=== PATIENT | male | born 1975 | race Caucasian/White ===

== ENCOUNTER 2016-09-25 16:35 | Inpatient (IN) | payer MEDICARE ==
[~2016-09-25] VITALS: Ht 167.6 cm; Wt 64.7 kg
[~2016-09-25 16:35] MED LIST: /ESCI20TA OR; TRAZ100T OR; ZYPR20TA OR
[2016-09-25] MEDS ORDERED: LORazepam 1 MG TAB PO STA (17:48)
[2016-09-25 17:58] LABS: ALBUMIN 4.3 GM/DL (3.2-5.2); ALBUMIN/GLOBULIN RATIO 1.34 (1.00-1.93); ALKALINE PHOSPHATASE 85 U/L (45-117); ALT/SGPT 22 U/L (12-78); ANION GAP 8 MEQ/L (8-16); AST/SGOT 11 U/L (15-37); BILIRUBIN,DIRECT 0.1 MG/DL (0.0-0.2); BILIRUBIN,TOTAL 0.5 MG/DL (0.2-1.0); BLOOD UREA NITROGEN 10 MG/DL (7-18); CALCIUM LEVEL 9.5 MG/DL (8.5-10.1); CARBON DIOXIDE LEVEL 28 MEQ/L (21-32); CHLORIDE LEVEL 102 MEQ/L (98-107); GLOMERULAR FILTRATION RATE > 60.0 (>60); GLUCOSE, FASTING 107 MG/DL (70-105); POTASSIUM SERUM 4.9 MEQ/L (3.5-5.1); SODIUM LEVEL 138 MEQ/L (136-145); TOTAL PROTEIN 7.5 GM/DL (6.4-8.2)
[2016-09-25] MEDS ORDERED: LAMI1TAB7 PO (18:13)
[2016-09-25 18:17] LABS: MEAN CORPUSCULAR HEMOGLOBIN 29.8 pg (27.0-33.0); MEAN CORPUSCULAR HGB CONC 33.7 g/dl (32.0-36.5); MEAN CORPUSCULAR VOLUME 88.5 fl (80.0-96.0); RED CELL DISTRIBUTION WIDTH 12.3 % (11.5-14.5); WHITE BLOOD COUNT 6.8 K/mm3 (4.0-10.0)
[2016-09-25 19:38] LABS: METHADONE URINE NEGATIVE (NEGATIVE)
[2016-09-25 22:23] VITALS: BP 135/75
[2016-09-25] MEDS ORDERED: MOM 30ML SUSPENSION UDC PO PRN (23:45)
[2016-09-25] MEDS ORDERED: MAALOX 30 ML SUSP *UDC PO PRN (23:45)
[2016-09-25] MEDS ORDERED: ACETAMINOPHEN TAB 650MG DOSE (2X325MG) PO PRN (23:45)
[2016-09-26] MEDS: OLANZapine 5 MG TAB PO PRN (00:09)
--- NOTE | 2016-09-26 10:25 | HPEPDOC ---
Medical History and Physical Date of Admission Sep 25, 2016 at 19:22 History and Physical PCP: none ATTENDING: Dr. Pepito Leyva HPI: 40yoM admitted to [facility] for bipolar disorder, being medically examined today. No acute medical complaints today. Patient states he takes Lamictal for his bipolar disorder. He follows with [facility]. Denies any fevers, chills, weakness , fatigue, GONZALES, CP, SOB, cough, palpitations, abdominal pain, N/V/D or changes in bowel or bladder habits. 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 ROS: As noted in HPI, otherwise 11pt ROS of systems reviewed and remarkable only for poor dentition. Teeth are in very poor condition. He states he has not been having any dental pain or dental infections recently. He has not had a dental provider. Usually rinses his mouth after eating and is careful about what foods he eats. PE: GEN: 40 yo M, appears stated age. Well-nourished, well developed. No acute distress. Alert and oriented x 3. Pleasant, interactive. HEENT: Normocephalic, atraumatic. Pupils are equal, round, and reactive to light. Extraocular movements are intact. No nystagmus appreciated. Sclera are nonicteric. Conjunctiva without injection. Nose midline. Nasal turbinates without bogginess. EACs both patent BL. TMs both visualized and walter with good cone of light, no bulging or erythema. No facial asymmetry. Moist mucous membranes. Dentition poor. Pharynx pink and moist, no cobblestoning. Neck supple , trachea midline. No lymphadenopathy or thyromegaly appreciated. CHEST: Regular rate and rhythm, +S1, +S2 LUNGS: Clear to auscultation bilaterally. No wheezes, rales, or rhonchi. Breathing appears symmetric and easy. Patient is speaking in full sentences. No accessory muscle use. ABD: Round, soft, non-tender, non-distended. +Bowel sounds throughout. No rebound or guarding. No costovertebral angle tenderness. EXT: Pulses 2+ bilaterally dorsalis pedis and radial. No lower extremity edema appreciated. SKIN: [place], dry, warm. Capillary refill <2sec. No rashes. NEURO: Alert and oriented x 3. Cranial nerves III-XII are intact. No focal deficits appreciated. EKG: Pending. A&P: 40yoM admitted to [facility] for bipolar disorder 1. Psych. Plan per Psychiatry.Obtain baseline EKG to assure the safety of psychiatric medications as they can prolong the QT interval. 2. Substance use. Per psychiatry. 3. Arrange follow-up with dental provider. 4. Follow up. No Primary Care Provider. Will attempt to establish PCP on discharge. 5. Staff member Kavon present throughout examination. Vital Signs Vital Signs Label Value Date Time Patient Temperature 98.3 degrees F 09/25/162222 Temperature Source Core 09/25/163 Pulse 87 09/25/16 2223 Pulse 87 09/25/16 2223 Respiratory Rate 22 bpm 09/25/16 2223 Blood Pressure Assessment 135/75 (95) 09/25/163 Bedside Pulse Oximetry 96 % 09/25/16 2223 Item Value Date Time Oxygen Delivery Method Room Air 09/25/16 2223 Laboratory Data Labs 24H Laboratory Tests 2 09/25/16 17:14: Acetaminophen Level < 2.0L, Aspartate Amino Transf (AST/SGOT) 11L, Alanine Aminotransferase (ALT/SGPT) 22, Alkaline Phosphatase 85, Total Bilirubin 0.5, Direct Bilirubin 0.1, Albumin 4.3, Albumin/Globulin Ratio 1.34, Anion Gap 8, Calcium Level 9.5, Ethyl Alcohol Level < 0.003, Glomerular Filtration Rate > 60.0, Salicylates Level 4.0L, Thyroid Stimulating Hormone (TSH) 0.958, Total Protein 7.5 09/25/16 18:39: Urine Amphetamines Screen NEGATIVE, Urine Benzodiazepines Screen NEGATIVE, Urine Opiates Screen NEGATIVE, Urine Barbiturates Screen NEGATIVE, Urine Cannabinoids Screen POSITIVEH, Urine Cocaine Metabolite Screen NEGATIVE, Urine Methadone Screen NEGATIVE, Urine Phencyclidine Screen NEGATIVE CBC/BMP Laboratory Tests 09/25/16 17:14 Red Blood Count 5.23, Mean Corpuscular Volume 88.5, Mean Corpuscular Hemoglobin 29.8, Mean Corpuscular Hemoglobin Concent 33.7, Red Cell Distribution Width 12.3 Home Medications Scheduled Lamotrigine (Lamictal) 100 Mg Tab 100 MG PO BID PT STATES ONLY TAKES WHEN HE REMEMBERS Allergies Coded Allergies: No Known Allergies (Verified Allergy, Unknown, 05/30/11) Ching Potter Sep 26, 2016 10:25
[2016-09-26 12:00] VITALS: BP 132/88
[2016-09-26] MEDS: hydrOXYzine 50 MG TAB PO SCH ×2 (12:24→23:32)
--- NOTE | 2016-09-26 13:39 | MHHPE ---
DATE OF ADMISSION: 09/25/2016 DATE OF SERVICE: 09/26/2016 IDENTIFYING DATA: Pierre Handy is a 40-year-old -Togolese man who was seen in the emergency room after he presented with complaints of worsening anxiety, severe depression, and increasing suicidal thoughts. CHIEF COMPLAINT: "I've been very depressed, anxious, and not feeling like myself." HISTORY OF PRESENT ILLNESS: Mr. Handy reports that he has a history of bipolar 1 disorder, but has not been taking his medication in the past 4-5 months due to his inability to pay for the prescription, as his insurance had lapsed. He progressively began to experience worsening of his symptoms, mainly depression. He was becoming very depressed in the past week with feelings of hopelessness, guilt, shame, lack of motivation and energy. He also began to experience severe anxiety, causing him to increasingly use marijuana IN self medication. About two days prior to his admission, he began to have frightening thoughts of suicide; thus, he undertook coming to the emergency room, where he requested voluntary inpatient hospitalization. He recalls having had a similar experience in 1998, which resulted in his first [facility] inpatient admission due to attempted hanging. PAST PSYCHIATRIC HISTORY: The patient reports having had his first psychiatric encounter when he was 14 years old. He states that he had at the time attempted suicide by taking an overdose of pills, and he was taken to an emergency room and subsequently referred to an outpatient psychiatrists. He reports having been prescribed medications at the time, but was noncompliant. Subsequently, around 1996 when he moved to [place] from [place], he was twice hospitalized at [facility] for mood-related disturbances. Details are unclear, but he recalls being started on Depakote at that time. His last inpatient psychiatric admission was at [facility], from 05/30/2011 to 06/05/2011, after he presented with suicidal ideation. His discharge diagnosis at that time was bipolar 1 disorder, social phobia, and generalized anxiety disorder, and the medications included Zyprexa 20 mg at bedtime, Lexapro 20 mg daily, and trazodone 100 mg at bedtime. He reports unclear unpleasant experiences with these medications. He also said he previously had been prescribed Lamictal. SUBSTANCE ABUSE HISTORY: The patient admits to significant use of marijuana, up to a gram or more a day, as self-prescribed treatment of his anxiety symptoms. He denies the use of other substances including alcohol and cigarettes. MEDICAL HISTORY: No active medical issues reported. SURGICAL HISTORY: Notable for appendectomy and a skin graft to his left ring finger secondary to congenital defects. ALLERGIES: There are no known allergies reported. SOCIAL HISTORY: He says that he was born in [place] where he completed a twelfth grade education. He relocated to [place] in 1996 and has been living here since then. He had one and a half years of service but was ejected due to having problems adjusting in the . 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 He was but in 2006 and has no children. No reported arrest history. He currently lives with his girlfriend. FAMILY HISTORY: He reports that he has three brothers, one of whom has Asperger's disease. Biological mother is . Father and step mom live in [place] as is the rest of his family members. He maintains only minimal contact with family members. The patient reports a notable family history of mental illness including father being diagnosed with anxiety and depression. Most family members with manic depressive disorder. No family history of suicide. REVIEW OF SYSTEMS: No pertinent findings. MENTAL STATUS EXAMINATION: The patient is a Togol[place] man who looks his stated age. He is of average height and build, and is fairly groomed. He is calm, cooperative, and presents with no unusual mannerisms. His speech is fluent. Thought process is coherent and logical. No delusional contents, and he denies active suicidal thoughts, plans or intent, as well as homicidal ideation. However, he expresses concern related to frequent intrusions into his thinking about "getting rid of my problems by committing suicide". He denies hallucination and does not appear to be responding to internal stimuli. He describes his mood as very depressed and affect is constricted. He is alert and well oriented to time , place and person. No evidence of memory impairment. Insight is good and judgment is currently not impaired. DIAGNOSIS: 1. Bipolar 1 disorder, current episode depressed. 2. Unspecified Anxiety Disorder 3. Cannabis use disorder, moderate. PROBLEM LIST: 1. Depressed mood. 2. Anxiety. 3. Risk for suicide. TREATMENT PLAN. 1. Admission on voluntary status. 2. Provision of safe and therapeutic environment to promote recovery and positive treatment response. 3. Treatment will be initiated with quetiapine for management of bipolar depression. Medications will be reviewed and adjusted ongoing, as may be clinically indicated. 4. Therapeutic programming, including group and activities, to be provided as adjuvant to medication management. Discharge planning will commence immediately. Estimated length of stay is five to seven days. MTDD
[2016-09-26 18:00] VITALS: BP 140/77
[2016-09-26 21:00] VITALS: BP 138/84
[2016-09-26] MEDS ORDERED: QUEtiapine FUMARATE 50 MG TAB PO ONE (21:00)
[2016-09-27 06:17] VITALS: BP 132/67
[2016-09-27 06:21] VITALS: BP 132/67
[2016-09-27] MEDS: hydrOXYzine 50 MG TAB PO SCH ×3 (07:57→23:11)
--- NOTE | 2016-09-27 16:49 | IPN ---
DATE: 09/27/2016 SUBJECTIVE: "I'm doing alright, better than I was the other day, but I'm still feeling depressed and my anxiety is going up." The patient is a 40-year-old -Indian man who was seen in the emergency room after he presented with complaints of worsening anxiety, severe depression, and increasing suicidal thoughts. He is diagnosed with bipolar 1 disorder, current episode depressed. Today is his third day of inpatient hospital admission and he is currently being prescribed quetiapine, with dose was started at 50 mg orally at bedtime and still being adjusted - today at 100 mg orally at bedtime. In addition, he is prescribed hydroxyzine 50 mg orally twice daily for management of anxiety. He is reported to be compliant with his treatment, and no adverse events reported. OBSERVATION: The patient is noted to be cooperative, is alert and adequately oriented. His vital signs are stable. He is noted to be quite teary and appearing very anxious as he discusses his progress and says that he wants the "voices and the anxiety in my head to go away". He is tolerating current medications and no adverse event evident. He denies active thoughts, plan, or intent of suicide or homicide. ASSESSMENT: The patient has continued to experience significant anxiety and mood symptomatology. However, he does not appear to be at imminent risk for suicide. PLAN: Quetiapine dose will continue to be adjusted to better manage mood symptoms. Hydroxyzine increased to 50 mg orally 3 times daily for anxiety. MTDD
[2016-09-27 18:00] VITALS: BP 147/70
[2016-09-27 20:32] VITALS: BP 144/84
[2016-09-27] MEDS ORDERED: QUEtiapine FUMARATE 100 MG TAB PO ONE (21:00)
[2016-09-27] MEDS: OLANZapine 5 MG TAB PO PRN (23:11)
[2016-09-28 06:26] VITALS: BP 102/65
[2016-09-28] MEDS: hydrOXYzine 50 MG TAB PO SCH ×3 (07:52→20:50)
[2016-09-28 18:00] VITALS: BP 145/88
--- NOTE | 2016-09-28 20:31 | IPN ---
DATE: 09/28/2016 SUBJECTIVE: "I am really depressed, maybe I am thinking that I should get better right away." The patient is seen and his treatment is reviewed. He currently is prescribed quetiapine at a dose of 100 mg. His hydroxyzine was increased the previous day to 50 mg orally three times daily. He continues to report mood symptoms. He states that his thoughts are racing and that he currently is depressed. He has been compliant with his medications and no reported side effects. OBSERVATION: He is groomed, alert, cooperative, and appropriately dressed. No abnormal involuntary movements or EPS noted. His speech is fluent. Thought process is coherent. Mood is depressed. No gross psychotic features evident. He denies active thoughts, plan or intent of suicide. ASSESSMENT: The patient seems to be responding but not robustly to treatment. Inpatient hospitalization continues to be required in order to appropriately adjust his medications. PLAN: Quetiapine will be increased to 200 mg extended release type orally daily at bedtime. Hydroxyzine will be continued at the current dose of 50 mg orally three times daily. Ongoing assessment and therapeutic programming. [facility]
[2016-09-28] MEDS: OLANZapine 5 MG TAB PO PRN (20:50)
[2016-09-28] MEDS ORDERED: QUEtiapine FUMARATE **XR** 200MG TABLET PO ONE (21:00)
[2016-09-29 06:41] VITALS: BP 145/64
[2016-09-29] MEDS: hydrOXYzine 50 MG TAB PO SCH ×3 (08:13→21:18)
--- NOTE | 2016-09-29 12:42 | IPN ---
DATE OF SERVICE: 09/29/2016 SUBJECTIVE: Today is the fifth day of inpatient admission for this 40-year-old man with bipolar depression admitted due to worsening depression, anxiety and suicidal ideation. He currently is prescribed quetiapine XR with dose still being adjusted up to a maximum of 30 mg at bedtime. Hydroxyzine 50 mg tablets is prescribed three times daily for management of anxiety. He reports today that the medication is working, I slept well last night and my mood is getting better. He has been compliant with treatment and presents with no new problems. OBSERVATION: His vital signs are stable. He alert and cooperative. Mood is noted to be less depressed and is observed to be less anxious. No overt psychotic feature noted, and he denies suicidal and homicidal ideation. No medication related adverse event. ASSESSMENT: The patient has continued to tolerated and respond positive with the treatment. PLAN: The same treatment will be continued and patient reassessed in 24 hours. He will be scheduled for discharge if he maintains treatment stability. [place]
[2016-09-29 18:00] VITALS: BP 121/77
[2016-09-29] MEDS ORDERED: QUEtiapine 300 MG XR TABLET(SEROQUEL XR) PO SCH (21:00)
[2016-09-29] MEDS: OLANZapine 5 MG TAB PO PRN (21:18)
[2016-09-30 06:13] VITALS: BP 114/66
[2016-09-30] MEDS: hydrOXYzine 50 MG TAB PO SCH (08:38)
[2016-09-30] MEDS ORDERED: QUET30XR PO (10:56)
[2016-09-30] MEDS ORDERED: HYDRO50TAB PO (10:56)
--- NOTE | 2016-09-30 11:00 | DS.PDOC ---
[facility] Discharge Summary Discharge Summary DATE OF ADMISSION: Sep 25, 2016 at 19:22 Date of discharge: 09/30/2016 DISCHARGE DIAGNOSES: 1. Unspecified anxiety. 2. Unspecified bipolar disorder. 3. chronic insomnia. REASON FOR ADMISSION: The patient was admitted due to presenting with suicidal ideation without a plan. He had been reportedly suffering from severe anxiety and insomnia for several days prior and was admitted for acute stabilization and safety planning. CONSULTANTS INVOLVED: None TREATMENT AND PROGRESS ON THE UNIT : Legal status on admission: 9.39 Medication Management: The patient was originally taken off of his home Lamictal and Zyprexa. He was started on Seroquel at 150 mg extended release formula. He appeared to do somewhat well on in tolerated without side effects. He was subsequently increased to 300 mg a night of extended release Seroquel this produced a good effect on his chronic insomnia and anxiety. He was given a when necessary of Zyprexa which did help at some point with his anxiety. However , on the day of discharge she was ambivalent about continuing to antipsychotics due to the multitude of possible side effects. He was continued on a 3 times daily hydroxyzine but was interested in possibly obtaining Ativan. However, due to the switch her providers this was considered generally imprudent. He understood this and would follow up with his outpatient psychiatrist for further medication titrations. Psychotherapy: The patient but dissipating groups relatively regularly Behavior: Friendly and amenable with no acute agitation episodes on the palmer. Discharge planning: The patient was slated for discharge the previous day after he had a good response to Seroquel. He had the previous evening a conversation with Shannan whom had done the family meeting via telephone. They were able to verify the patient had no guns or acute late medications available and that he had a good social support system pending his discharge. DISCHARGE ASSESSMENT: 40-year-old man who presents in a state of severe anxiety with a history of bipolar disorder with suicidal ideation without a plan. He had done relatively well in the community for 5 years without any need for inpatient stays. His medications including olanzapine and Lamictal had been insufficient to control his chronic anxiety home on insomnia and difficulties with mood variation. His underlying diagnosis is not entirely clear at this time and he may benefit from outpatient psychological testing including MMPI and IQ testing. At this time he appears to been stabilized well on monotherapy with Seroquel extended release. MENTAL STATUS EXAMINATION ON DISCHARGE: General: Well dressed with good hygiene Speech: Spontaneous and fluid Thought processes: Linear and logical Thought content: Future orientated Abstract reasoning, and computation: Intact Description of associations: Intact Description of abnormal or psychotic thoughts:Denies any suicidal or homicidal ideation. Denies any auditory or visual hallucinations. Does not appear to be responding to internal stimuli. Does not appear to be endorsing any bizarre or paranoid ideation. Judgment: Fair Insight: Fair Orientation: Alert and orientated 3 Recent and remote memory: Intact Attention span and concentration: Intact Fund of knowledge: Adequate Mood: "Great" Affect: Euthymic with a full range PLAN/FOLLOWUP ARRANGEMENTS: The patient after having sufficient family meeting where his safety issues were explored and confirmed with collateral information was slated for discharge his prescriptions were sent to his preferred pharmacy with palmer protocol seven-day supplies with 4 refills to prevent medication accumulation. He had appointments arranged with his outpatient providers within 5 days.. The amount of time spent in the coordination of care for this patient was approximately 30 minutes. Vital Signs/I&Os Vital Signs Date Time Temp Pulse Resp B/P Pulse Ox O2 Delivery O2 Flow Rate FiO2 09/30/16 06:13 96.9 64 18 114/66 09/25/16 22:23 96 Room Air Laboratory Data Labs 24H Item Value Date Time Urine Cannabinoids Screen POSITIVE H 09/25/16 183 Urine Cocaine Metabolite Screen NEGATIVE 09/25/16 183 Urine Benzodiazepines Screen NEGATIVE 09/25/16 183 Urine Amphetamines Screen NEGATIVE 09/25/16 183 Urine Barbiturates Screen NEGATIVE 09/25/16 183 Urine Phencyclidine Screen NEGATIVE 09/25/16 183 Urine Methadone Screen NEGATIVE 09/25/16 183 Urine Opiates Screen NEGATIVE 09/25/16 183 Medications Scheduled Hydroxyzine HCl (Hydroxyzine HCl) 50 Mg Tab #21 50 MG PO TID ANXIETY Lamotrigine (Lamictal) 100 Mg Tab 100 MG PO BID (Reported) PT STATES ONLY TAKES WHEN HE REMEMBERS Quetiapine Fumarate (Seroquel Xr) 300 Mg Fartun #7 300 MG PO QHS MOOD Allergies Coded Allergies: No Known Allergies (Verified Allergy, Unknown, 05/30/11) GME ATTESTATION My preceptor for this patient encounter was physically present in the building during the encounter and was fully available. As needed, all aspects of the patient interview, examination, medical decision making process, and medical care plan development were reviewed and approved by the preceptor. Preceptor is aware and concurs with the plan as stated in the body of this note and will attest to such by his/her cosignature. KATY HEATH DO Sep 30, 2016 10:56 TANNA OLGUIN MD Sep 30, 2016 11:01
--- NOTE | 2016-09-30 22:33 | ECGEPIP ---
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 Electronically Signed On 09-30-2016 22:33:33 EDT by Pepito Osborne
== END 2016-09-30 12:15 | disposition home or self-care (01) | DRG 880 ==
LOC: M ED 18:44 → M ED INP 19:22 → M PSY 22:25
PROVIDERS: ADMIT Psychiatry & Neurology Psychiatry; ATTEND Psychiatry & Neurology Psychiatry
DX: F41.9 Anxiety disorder, unspecified (principal); F32.9 Major depressive disorder, single episode, unspecified; G47.00 Insomnia, unspecified; F17.200 Nicotine dependence, unspecified, uncomplicated

== ENCOUNTER 2018-05-15 00:37 | Emergency (ER) | payer MEDICARE ==
[2018-05-15] MEDS: NS 1,000 ML IV ×2 (01:30→03:00)
[2018-05-15 01:50] LABS: BASO % 0.4 % (0.0-1.0); EOS # 0.2 10^3/uL (0.0-0.50); EOS % 1.8 % (0.0-3.0); HEMATOCRIT 41.4 % (42.0-52.0); HEMOGLOBIN 14.3 g/dl (13.5-17.5); IMMATURE GRANULOCYTE % 0.4 % (0-3.0); LYMPH # 2.4 10^3/uL (1.5-4.5); MEAN CORPUSCULAR HEMOGLOBIN 29.4 pg (27.0-33.0); MEAN CORPUSCULAR HGB CONC 34.5 g/dl (32.0-36.5); MEAN CORPUSCULAR VOLUME 85.2 fl (80.0-96.0); MONO # 0.7 10^3/uL (0.0-0.8); MONO % 6.3 % (0.0-5.0); NEUTROPHILS % 68.1 % (36.0-66.0); PLATELET COUNT, AUTOMATED 219 10^3/uL (150-450); RED BLOOD COUNT 4.86 10^6/uL (4.30-6.10); RED CELL DISTRIBUTION WIDTH 12.1 % (11.5-14.5); WHITE BLOOD COUNT 10.2 10^3/uL (4.0-10.0)
[2018-05-15 02:06] LABS: INR 0.98; PROTHROMBIN TIME 13.1 SECONDS (12.1-14.4)
[2018-05-15 02:07] LABS: PARTIAL THROMBOPLASTIN TIME 27.9 SECONDS (25.4-37.6)
[2018-05-15 02:10] LABS: ANION GAP 8 MEQ/L (8-16); BLOOD UREA NITROGEN 14 MG/DL (7-18); CALCIUM LEVEL 8.6 MG/DL (8.5-10.1); CARBON DIOXIDE LEVEL 30 MEQ/L (21-32); CHLORIDE LEVEL 103 MEQ/L (98-107); CREATININE FOR GFR 1.37 MG/DL (0.70-1.30); GLOMERULAR FILTRATION RATE > 60.0 (>60); GLUCOSE, FASTING 140 MG/DL (70-100); POTASSIUM SERUM 3.6 MEQ/L (3.5-5.1); SODIUM LEVEL 141 MEQ/L (136-145)
[2018-05-15 02:30] LABS: CK-MB VALUE MASS < 1.0 NG/ML (<3.6); CPK CREATINE PHOSPHOKINASE 97 U/L (39-308); MB/CK RELATIVE INDEX 1.03 (< OR =4); TROPONIN I < 0.02 NG/ML (< 0.10)
[2018-05-15] MEDS ORDERED: ISOVUE-370 76% 100ML VIAL (Q9967) As Ordered (03:15)
== END 2018-05-15 06:19 | disposition home or self-care (01) ==
LOC: M ED 00:37
DX: E86.0 Dehydration (principal); S86.919A Strain of unspecified muscle(s) and tendon(s) at lower leg level, unspecified leg, initial encounter; X58.XXXA Exposure to other specified factors, initial encounter; Y92.89 Other specified places as the place of occurrence of the external cause; F33.9 Major depressive disorder, recurrent, unspecified; F41.9 Anxiety disorder, unspecified; Z87.891 Personal history of nicotine dependence
CPT/HCPCS: Q9967

== ENCOUNTER → 2018-10-06 | Outpatient (CLI) | payer MEDICARE ==
[~2018-10-06] MED LIST changes: -/ESCI20TA OR; +BENA25CA4 PO; +BUPR10TASR PO; +BUPR150T3 PO; +BUPR300T34 PO; +ESZO1TAB4 PO; +ESZO1TAB6 PO; +HYDR50TA70 PO; +HYDRO50TAB PO; +LAMI1TAB7 PO; +LAMI1TAB8 PO; +LEXA1TAB2 OR; +LUNE2TAB23 PO; +SERO300T PO; +ZYPR20TA PO
[2018-10-06 17:32] LABS: BLOOD UREA NITROGEN 15 MG/DL (7-18); CREATININE FOR GFR 1.16 MG/DL (0.70-1.30); GLOMERULAR FILTRATION RATE > 60.0 (>60); LITHIUM LEVEL 0.75 MEQ/L (0.60-1.20); MAGNESIUM LEVEL 2.4 MG/DL (1.8-2.4)
== END ==
LOC: M WUC 13:53
PROVIDERS: ATTEND Psychiatry & Neurology Psychiatry
DX: F31.9 Bipolar disorder, unspecified (principal)

== ENCOUNTER → 2019-04-27 | Outpatient (CLI) | payer MEDICARE ==
[~2019-04-27] MED LIST changes: +HYDR1TAB33 PO; -HYDRO50TAB PO
[2019-04-27 17:13] LABS: BASO # 0.1 10^3/uL (0.0-0.2); BASO % 0.8 % (0.0-1.0); EOS # 0.2 10^3/uL (0.0-0.5); EOS % 2.5 % (0.0-3.0); HEMATOCRIT 49.1 % (42.0-52.0); HEMOGLOBIN 16.3 g/dl (13.5-17.5); LYMPH # 3.2 10^3/uL (1.5-5.0); LYMPH % 38.6 % (24.0-44.0); MEAN CORPUSCULAR HEMOGLOBIN 30.3 pg (27.0-33.0); MEAN CORPUSCULAR HGB CONC 33.2 g/dl (32.0-36.5); MEAN CORPUSCULAR VOLUME 91.3 fl (80.0-96.0); MONO # 0.5 10^3/uL (0.0-0.8); MONO % 6.3 % (0.0-5.0); NEUTROPHILS # 4.3 10^3/uL (1.5-8.5); NEUTROPHILS % 51.4 % (36.0-66.0); PLATELET COUNT, AUTOMATED 258 10^3/uL (150-450); RED BLOOD COUNT 5.38 10^6/uL (4.30-6.10); WHITE BLOOD COUNT 8.3 10^3/uL (4.0-10.0)
[2019-04-27 17:16] LABS: ALBUMIN 4.2 GM/DL (3.2-5.2); ALT/SGPT 18 U/L (12-78); BILIRUBIN,TOTAL 0.4 MG/DL (0.2-1.0); BLOOD UREA NITROGEN 12 MG/DL (7-18); CALCIUM LEVEL 9.8 MG/DL (8.5-10.1); CARBON DIOXIDE LEVEL 31 MEQ/L (21-32); CHLORIDE LEVEL 105 MEQ/L (98-107); CHOLESTEROL LEVEL 159 MG/DL (<200); CHOLESTEROL RISK RATIO 3.382 (<5); CREATININE FOR GFR 1.34 MG/DL (0.70-1.30); FREE T4 0.99 NG/DL (0.76-1.46); GLOMERULAR FILTRATION RATE > 60.0 (>60); GLUCOSE, FASTING 94 MG/DL (70-100); HDL CHOLESTEROL 47 MG/DL (>40); LDL CHOLESTEROL 91 MG/DL (<100); LITHIUM LEVEL 0.63 MEQ/L (0.60-1.20); NON-HDL-C 112 MG/DL; POTASSIUM SERUM 4.5 MEQ/L (3.5-5.1); SODIUM LEVEL 139 MEQ/L (136-145); TOTAL PROTEIN 7.4 GM/DL (6.4-8.2); TRIGLYCERIDES LEVEL 104 MG/DL (<150)
[2019-04-27 17:19] LABS: PROLACTIN 8.4 NG/ML (2.1-17.7); TESTOSTERONE 385 NG/DL (241-827)
[2019-04-27 18:00] LABS: HEMOGLOBIN A1c 4.9 %
== END ==
LOC: M WUC 13:29
PROVIDERS: ATTEND Psychiatry & Neurology Child & Adolescent Psychiatry
DX: F31.9 Bipolar disorder, unspecified (principal)

== ENCOUNTER → 2020-07-03 | Outpatient (CLI) | payer MEDICARE ==
[~2020-07-03] MED LIST changes: -BUPR300T34 PO; +BUPR300T92 PO
[2020-07-03 14:47] LABS: BASO % 0.5 % (0.0-1.0); EOS # 0.2 10^3/uL (0.0-0.5); EOS % 2.7 % (0.0-3.0); HEMATOCRIT 46.3 % (42.0-52.0); HEMOGLOBIN 15.3 g/dl (13.5-17.5); LYMPH # 2.2 10^3/uL (1.5-5.0); LYMPH % 33.3 % (24.0-44.0); MEAN CORPUSCULAR VOLUME 93.7 fl (80.0-96.0); MONO # 0.4 10^3/uL (0.0-0.8); NEUTROPHILS # 3.8 10^3/uL (1.5-8.5); NEUTROPHILS % 57.2 % (36.0-66.0); PLATELET COUNT, AUTOMATED 197 10^3/uL (150-450); RED BLOOD COUNT 4.94 10^6/uL (4.30-6.10); WHITE BLOOD COUNT 6.6 10^3/uL (4.0-10.0)
[2020-07-03 15:09] LABS: HEMOGLOBIN A1c 4.8 %
[2020-07-03 15:24] LABS: ALBUMIN 4.1 GM/DL (3.2-5.2); ALT/SGPT 24 U/L (12-78); BILIRUBIN,DIRECT 0.1 MG/DL (0.0-0.2); BILIRUBIN,TOTAL 0.6 MG/DL (0.2-1.0); BLOOD UREA NITROGEN 11 MG/DL (7-18); CALCIUM LEVEL 9.4 MG/DL (8.5-10.1); CARBON DIOXIDE LEVEL 30 MEQ/L (21-32); CHLORIDE LEVEL 104 MEQ/L (98-107); CHOLESTEROL LEVEL 171 MG/DL (<200); CHOLESTEROL RISK RATIO 3.562 (<5); CREATININE FOR GFR 1.12 MG/DL (0.70-1.30); GLOMERULAR FILTRATION RATE > 60.0 (>60); GLUCOSE, FASTING 97 MG/DL (70-100); GLUCOSE,RANDOM 97 MG/DL (LESS THAN 200); HDL CHOLESTEROL 48 MG/DL (>40); LDL CHOLESTEROL 100 MG/DL (<100); LITHIUM LEVEL 0.43 MEQ/L (0.60-1.20); NON-HDL-C 123 MG/DL; PHOSPHORUS LEVEL 3.1 MG/DL (2.5-4.9); POTASSIUM SERUM 4.6 MEQ/L (3.5-5.1); SODIUM LEVEL 138 MEQ/L (136-145); TRIGLYCERIDES LEVEL 115 MG/DL (<150)
[2020-07-03 15:26] LABS: TOTAL 25(OH) VITAMIN D 30.5 NG/ML (30.0-100.0)
--- NOTE | 2020-07-04 23:42 | ECGEPIP ---
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 Electronically Signed on 07-04-2020 23:42:02 EST by César Jones
== END ==
LOC: M LAB 13:50
PROVIDERS: ATTEND Registered Nurse
DX: F41.9 Anxiety disorder, unspecified (principal); Z79.899 Other long term (current) drug therapy

== ENCOUNTER → 2021-02-25 | Outpatient (CLI) | payer MEDICARE ==
[~2021-02-25] MED LIST changes: +BUPR150T12 PO; -BUPR150T3 PO
== END ==
LOC: M LAB 09:10
PROVIDERS: ATTEND Registered Nurse
DX: F41.9 Anxiety disorder, unspecified (principal); Z51.81 Encounter for therapeutic drug level monitoring; Z13.9 Encounter for screening, unspecified; Z79.899 Other long term (current) drug therapy

== ENCOUNTER → 2021-03-19 | Outpatient (CLI) | payer MEDICARE | LOC: M LAB 10:36 | PROVIDERS: ATTEND Registered Nurse | DX: F41.9 Anxiety disorder, unspecified (principal); Z51.81 Encounter for therapeutic drug level monitoring ==

== ENCOUNTER 2021-10-08 08:35 | Emergency (ER) | payer MEDICARE, OTHER ==
[~2021-10-08] VITALS: Ht 167.6 cm; Wt 67.0 kg
[2021-10-08] MEDS ORDERED: PROP10TA56 (08:42)
[2021-10-08] MEDS ORDERED: LITH300T2 (08:42)
[2021-10-08] MEDS ORDERED: BENZOCAINE 20% GEL 9GM TUBE (ANBESOL MAX STRENGTH) TOP ONE (13:05)
[2021-10-08] MEDS ORDERED: KETOROLAC 30 MG/ML 1ML VIAL IV ONE (13:10)
[2021-10-08 13:45] LABS: BASO # 0.1 10^3/uL (0.0-0.2); BASO % 0.5 % (0.0-1.0); EOS # 0.1 10^3/uL (0.0-0.5); EOS % 0.7 % (0.0-3.0); HEMATOCRIT 48.3 % (42.0-52.0); HEMOGLOBIN 16.2 g/dl (13.5-17.5); MEAN CORPUSCULAR HGB CONC 33.5 g/dl (32.0-36.5); MEAN CORPUSCULAR VOLUME 92.4 fl (80.0-96.0); MONO # 0.6 10^3/uL (0.0-0.8); NEUTROPHILS # 7.8 10^3/uL (1.5-8.5); NEUTROPHILS % 73.5 % (36.0-66.0); PLATELET COUNT, AUTOMATED 211 10^3/uL (150-450); RED BLOOD COUNT 5.23 10^6/uL (4.30-6.10); WHITE BLOOD COUNT 10.7 10^3/uL (4.0-10.0)
[2021-10-08 14:11] LABS: BLOOD UREA NITROGEN 9 MG/DL (7-18); C REACTIVE PROTEIN QUANTITATIV 2.77 MG/DL (0.00-0.30); CALCIUM LEVEL 9.4 MG/DL (8.5-10.1); CARBON DIOXIDE LEVEL 28 MEQ/L (21-32); CHLORIDE LEVEL 106 MEQ/L (98-107); CREATININE FOR GFR 1.07 MG/DL (0.70-1.30); GLOMERULAR FILTRATION RATE > 60.0 (>60); GLUCOSE, FASTING 101 MG/DL (70-100); SODIUM LEVEL 138 MEQ/L (136-145)
[2021-10-08 14:27] LABS: ERYTHROCYTE SEDIMENTATION RATE 6 mm/hr (0-15)
[2021-10-08] MEDS ORDERED: ISOVUE-370 76% 100ML VIAL As Ordered ONE ×2 (14:33→15:42)
[2021-10-08] MEDS ORDERED: AMPICILLIN SOD/SULBACTAM SOD 3 GM in D5W MINI-BAG PLUS 100 ML IV ONE (15:05)
[2021-10-08] MEDS ORDERED: dexameTHASONE 20MG/5ML VIAL (J1100 PER 1MG) IV ONE (15:05)
[2021-10-08] MEDS ORDERED: AMOX875T2 PO (15:27)
[2021-10-08] MEDS ORDERED: PERI0.126 PO (15:29)
[2021-10-08 15:56] VITALS: BP 162/100
== END 2021-10-08 16:43 | disposition home or self-care (01) ==
LOC: M ED 08:35
DX: K04.7 Periapical abscess without sinus (principal); Z79.899 Other long term (current) drug therapy
CPT/HCPCS: 10160; 80048; 83605; 85025; 85652; 86140; 96365; 96375; 99284; J0295; J1100; J1885; Q9967

== ENCOUNTER → 2021-10-15 | Outpatient (CLI) | payer OTHER ==
[~2021-10-15] MED LIST changes: +AMOX875T2 PO; +LITH300T2; +PERI0.126 PO; +PROP10TA56
== END ==
LOC: M SOG 08:44
PROVIDERS: ATTEND Orthopaedic Surgery
DX: M25.511 Pain in right shoulder (principal)

== ENCOUNTER → 2021-11-08 | Outpatient (CLI) | payer OTHER ==
[2021-11-08 11:20] LABS: BASO # 0.1 10^3/uL (0.0-0.2); BASO % 0.6 % (0.0-1.0); EOS # 0.3 10^3/uL (0.0-0.5); EOS % 4.3 % (0.0-3.0); HEMOGLOBIN 16.3 g/dl (13.5-17.5); LYMPH # 2.6 10^3/uL (1.5-5.0); LYMPH % 33.3 % (24.0-44.0); MEAN CORPUSCULAR HEMOGLOBIN 31.2 pg (27.0-33.0); MONO # 0.5 10^3/uL (0.0-0.8); MONO % 6.6 % (2.0-8.0); NEUTROPHILS # 4.4 10^3/uL (1.5-8.5); NEUTROPHILS % 54.9 % (36.0-66.0); PLATELET COUNT, AUTOMATED 214 10^3/uL (150-450); RED BLOOD COUNT 5.22 10^6/uL (4.30-6.10); WHITE BLOOD COUNT 7.9 10^3/uL (4.0-10.0)
[2021-11-08 11:50] LABS: ALT/SGPT 43 U/L (12-78); BILIRUBIN,DIRECT 0.2 MG/DL (0.0-0.2); BILIRUBIN,TOTAL 0.6 MG/DL (0.2-1.0); BLOOD UREA NITROGEN 11 MG/DL (7-18); CALCIUM LEVEL 10.1 MG/DL (8.5-10.1); CARBON DIOXIDE LEVEL 29 MEQ/L (21-32); CHLORIDE LEVEL 106 MEQ/L (98-107); CHOLESTEROL LEVEL 180 MG/DL (<200); CHOLESTEROL RISK RATIO 3.103 (<5); GLOMERULAR FILTRATION RATE > 60.0 (>60); GLUCOSE, FASTING 103 MG/DL (70-100); HDL CHOLESTEROL 58 MG/DL (>40); LDL CHOLESTEROL 105 MG/DL (<100); LITHIUM LEVEL 0.49 MEQ/L (0.60-1.20); NON-HDL-C 122 MG/DL; PHOSPHORUS LEVEL 3.1 MG/DL (2.5-4.9); POTASSIUM SERUM 4.8 MEQ/L (3.5-5.1); SODIUM LEVEL 139 MEQ/L (136-145); TOTAL PROTEIN 7.3 GM/DL (6.4-8.2); TRIGLYCERIDES LEVEL 83 MG/DL (<150)
[2021-11-08 11:52] LABS: TOTAL 25(OH) VITAMIN D 21.7 NG/ML (30.0-100.0)
[2021-11-09 11:10] LABS: THRYOGLOBULIN ANTIBODIES (ATA) < 1.0 IU/mL (0.0-0.9); THYROGLOBULIN QUANTITATIVE 8.1 ng/mL (1.4-29.2)
== END ==
LOC: M LAB 09:54
PROVIDERS: ATTEND Registered Nurse
DX: F41.9 Anxiety disorder, unspecified (principal); Z79.899 Other long term (current) drug therapy

== ENCOUNTER 2022-02-26 18:58 | Inpatient (IN) | payer MEDICAID, OTHER ==
[~2022-02-26] VITALS: Ht 167.6 cm; Wt 67.3 kg
[2022-02-26 20:12] LABS: HEMOGLOBIN 15.8 g/dl (13.5-17.5); MEAN CORPUSCULAR HEMOGLOBIN 31.5 pg (27.0-33.0); MEAN CORPUSCULAR HGB CONC 33.6 g/dl (32.0-36.5); MEAN CORPUSCULAR VOLUME 93.6 fl (80.0-96.0); PLATELET COUNT, AUTOMATED 211 10^3/uL (150-450); RED BLOOD COUNT 5.02 10^6/uL (4.30-6.10); WHITE BLOOD COUNT 8.9 10^3/uL (4.0-10.0)
[2022-02-26 21:11] LABS: ACETAMINOPHEN LEVEL < 2.0 UG/ML (10.0-30.0); ALBUMIN 3.9 GM/DL (3.2-5.2); ALT/SGPT 29 U/L (12-78); AMPHETAMINES LEVEL URINE NEGATIVE (NEGATIVE); BARBITURATES URINE NEGATIVE (NEGATIVE); BENZODIAZEPINES URINE POSITIVE (NEGATIVE); BILIRUBIN,DIRECT < 0.1 MG/DL (0.0-0.2); BILIRUBIN,TOTAL 0.2 MG/DL (0.2-1.0); BLOOD UREA NITROGEN 13 MG/DL (7-18); CANNABINOIDS URINE POSITIVE (NEGATIVE); CARBON DIOXIDE LEVEL 30 MEQ/L (21-32); CHLORIDE LEVEL 107 MEQ/L (98-107); COCAINE METABOLITE URINE NEGATIVE (NEGATIVE); CREATININE FOR GFR 1.29 MG/DL (0.70-1.30); ETHYL ALCOHOL (ETHANOL) 0.007 % (0.000-0.010); GLOMERULAR FILTRATION RATE > 60.0 (>60); GLUCOSE, FASTING 108 MG/DL (70-100); METHADONE URINE NEGATIVE (NEGATIVE); OPIATES URINE NEGATIVE (NEGATIVE); PHENCYCLIDINE URINE NEGATIVE (NEGATIVE); POTASSIUM SERUM 4.4 MEQ/L (3.5-5.1); SALICYLATE LEVEL 3.1 MG/DL (5.0-30.0); SODIUM LEVEL 140 MEQ/L (136-145); TOTAL PROTEIN 7.3 GM/DL (6.4-8.2)
[2022-02-26] MEDS ORDERED: PROP10TA56 PO (21:20)
[2022-02-26] MEDS ORDERED: AMLO1TAB24 PO (21:20)
[2022-02-26] MEDS ORDERED: BUSP30TA PO (21:20)
[2022-02-26] MEDS ORDERED: PERI0.126 SSP (21:20)
[2022-02-26] MEDS ORDERED: HYDR50TA70 PO (21:20)
[2022-02-26] MEDS ORDERED: LITH300C PO (21:20)
[2022-02-26] MEDS ORDERED: HOME MED LIST COMPLETE! XX SCH (21:25)
[2022-02-26] MEDS ORDERED: hydrOXYzine 50 MG TAB PO PRN (22:10)
[2022-02-26 22:50] LABS: LITHIUM LEVEL 0.22 MEQ/L (0.60-1.20)
[2022-02-27] MEDS ORDERED: NS 1,000 ML IV ONE (09:55)
[2022-02-27] MEDS ORDERED: PT COMMENT (11:05)
[2022-02-27] MEDS ORDERED: HOME MED LIST COMPLETE! XX SCH (11:10)
[2022-02-27] MEDS: busPIRone 10 MG TAB PO SCH ×2 (11:47→21:00)
[2022-02-27] MEDS: amLODIPine 5 MG TAB PO SCH (11:48)
[2022-02-27] MEDS: lamoTRIgine 100MG TAB PO SCH ×2 (11:48→21:00)
[2022-02-27 12:03] LABS: ALBUMIN 3.9 GM/DL (3.2-5.2); ALT/SGPT 30 U/L (12-78); BILIRUBIN,DIRECT 0.1 MG/DL (0.0-0.2); BILIRUBIN,TOTAL 0.6 MG/DL (0.2-1.0); BLOOD UREA NITROGEN 10 MG/DL (7-18); CALCIUM LEVEL 9.6 MG/DL (8.5-10.1); CARBON DIOXIDE LEVEL 28 MEQ/L (21-32); CHLORIDE LEVEL 109 MEQ/L (98-107); CREATININE FOR GFR 1.08 MG/DL (0.70-1.30); GLOMERULAR FILTRATION RATE > 60.0 (>60); GLUCOSE, FASTING 91 MG/DL (70-100); LITHIUM LEVEL < 0.20 MEQ/L (0.60-1.20); POTASSIUM SERUM 4.4 MEQ/L (3.5-5.1); SODIUM LEVEL 140 MEQ/L (136-145); TOTAL PROTEIN 6.8 GM/DL (6.4-8.2)
[2022-02-27] MEDS ORDERED: CHLORHEXIDINE GLUCONATE 0.12 % 15ML UDC (PERIDEX ORAL RINSE) SSP PRN (19:20)
[2022-02-27] MEDS: LITHIUM CARBONATE 300 MG CAP PO SCH (21:00)
[2022-02-27] MEDS ORDERED: OLANZapine ORAL DISINTEGRATING TAB 5MG PO SCH (21:00)
[2022-02-28 07:06] LABS: HEMOGLOBIN 16.2 g/dl (13.5-17.5); MEAN CORPUSCULAR HEMOGLOBIN 30.9 pg (27.0-33.0); MEAN CORPUSCULAR HGB CONC 33.8 g/dl (32.0-36.5); MEAN CORPUSCULAR VOLUME 91.4 fl (80.0-96.0); PLATELET COUNT, AUTOMATED 190 10^3/uL (150-450); RED BLOOD COUNT 5.25 10^6/uL (4.30-6.10); WHITE BLOOD COUNT 6.7 10^3/uL (4.0-10.0)
[2022-02-28 07:39] LABS: BLOOD UREA NITROGEN 12 MG/DL (7-18); CALCIUM LEVEL 9.1 MG/DL (8.5-10.1); CARBON DIOXIDE LEVEL 23 MEQ/L (21-32); CHLORIDE LEVEL 110 MEQ/L (98-107); GLOMERULAR FILTRATION RATE > 60.0 (>60); GLUCOSE, FASTING 93 MG/DL (70-100); MAGNESIUM LEVEL 2.2 MG/DL (1.8-2.4); PHOSPHORUS LEVEL 3.4 MG/DL (2.5-4.9); POTASSIUM SERUM 4.9 MEQ/L (3.5-5.1); SODIUM LEVEL 140 MEQ/L (136-145)
[2022-02-28] MEDS: busPIRone 10 MG TAB PO SCH ×2 (08:58→20:06)
[2022-02-28] MEDS: lamoTRIgine 100MG TAB PO SCH (08:58)
[2022-02-28] MEDS: amLODIPine 5 MG TAB PO SCH (08:58)
[2022-02-28] MEDS: LITHIUM CARBONATE 300 MG CAP PO SCH ×2 (08:58→20:06)
[2022-02-28] MEDS ORDERED: NICOTINE 21MG/24HR 1 EA TRANSDERMAL TD SCH (09:00)
[2022-02-28] MEDS ORDERED: ENOXAPARIN 40MG/0.4ML SYRINGE (J1650 PER 10MG) SC SCH (09:00)
[2022-02-28] MEDS ORDERED: traZODone 50 MG TAB PO PRN (13:15)
[2022-02-28] MEDS ORDERED: IBUPROFEN 400MG TAB PO PRN (13:15)
[2022-02-28] MEDS ORDERED: MOM 30ML SUSPENSION UDC PO PRN (13:15)
[2022-02-28] MEDS ORDERED: LORazepam 2 MG TAB PO PRN (13:15)
[2022-02-28] MEDS ORDERED: THIA100TA PO (15:00)
[2022-02-28] MEDS ORDERED: FOLI1TAB11 PO (15:00)
[2022-02-28] MEDS ORDERED: TRAZ-252 PO (15:00)
[2022-02-28 17:09] VITALS: BP 131/89
[2022-02-28 18:20] VITALS: BP 131/89
[2022-02-28] MEDS: MULTIVITAMINS/MINERALS THERAP 1 TAB PO SCH (18:59)
[2022-02-28] MEDS: FOLIC ACID 1MG TAB PO SCH (18:59)
[2022-02-28] MEDS: THIAMINE 100 MG TAB PO SCH ×2 (18:59→20:06)
[2022-02-28] MEDS: PROPRANOLOL 10 MG TAB PO PRN (19:14)
[2022-02-28] MEDS: OLANZapine 10 MG TAB PO SCH (20:06)
[2022-02-28] MEDS: hydrOXYzine 50 MG TAB PO SCH (20:07)
[2022-02-28] MEDS ORDERED: lamoTRIgine 100MG TAB PO SCH (21:00)
[2022-03-01] VITALS (7 sets, daily range): BP systolic 112–130; BP diastolic 68–88
[2022-03-01] MEDS ORDERED: QUEtiapine FUMARATE 25 MG TAB PO ONE (00:15)
[2022-03-01] MEDS: lamoTRIgine 25MG TAB PO SCH (07:47)
[2022-03-01] MEDS: lamoTRIgine 100MG TAB PO SCH (07:47)
[2022-03-01] MEDS: busPIRone 10 MG TAB PO SCH ×2 (07:47→20:10)
[2022-03-01] MEDS: amLODIPine 5 MG TAB PO SCH (07:48)
[2022-03-01] MEDS: LITHIUM CARBONATE 300 MG CAP PO SCH ×2 (07:48→20:10)
[2022-03-01] MEDS: THIAMINE 100 MG TAB PO SCH ×2 (07:48→20:10)
[2022-03-01] MEDS: PROPRANOLOL 10 MG TAB PO PRN ×2 (07:48→15:55)
[2022-03-01] MEDS: MULTIVITAMINS/MINERALS THERAP 1 TAB PO SCH (07:48)
[2022-03-01] MEDS: hydrOXYzine 50 MG TAB PO SCH ×2 (07:49→20:10)
[2022-03-01] MEDS: FOLIC ACID 1MG TAB PO SCH (07:49)
[2022-03-01] MEDS: OLANZapine 10 MG TAB PO SCH (20:10)
[2022-03-01] MEDS: zolPIDEM TARTRATE 5 MG TAB PO SCH (21:17)
[2022-03-02] MEDS: PROPRANOLOL 10 MG TAB PO PRN ×3 (06:24→20:06)
[2022-03-02 06:25] VITALS: BP 118/58
[2022-03-02 07:51] LABS: CHOLESTEROL RISK RATIO 4.975 (<5)
[2022-03-02] MEDS: lamoTRIgine 25MG TAB PO SCH ×2 (08:21→20:05)
[2022-03-02] MEDS: lamoTRIgine 100MG TAB PO SCH (08:21)
[2022-03-02] MEDS: busPIRone 10 MG TAB PO SCH ×2 (08:21→20:04)
[2022-03-02] MEDS: FOLIC ACID 1MG TAB PO SCH (08:21)
[2022-03-02] MEDS: hydrOXYzine 50 MG TAB PO SCH ×2 (08:21→20:05)
[2022-03-02] MEDS: MULTIVITAMINS/MINERALS THERAP 1 TAB PO SCH (08:21)
[2022-03-02] MEDS: amLODIPine 5 MG TAB PO SCH (08:21)
[2022-03-02] MEDS: THIAMINE 100 MG TAB PO SCH ×2 (08:22→20:05)
[2022-03-02] MEDS: LITHIUM CARBONATE 300 MG CAP PO SCH ×2 (08:22→20:05)
[2022-03-02 14:00] VITALS: BP 138/80
[2022-03-02] MEDS ORDERED: ACETAMINOPHEN 325 MG TAB PO PRN (14:40)
[2022-03-02 16:14] VITALS: BP 134/76
[2022-03-02] MEDS: RAMELTEON 8 MG TAB (ROZEREM) PO SCH (20:05)
[2022-03-02] MEDS ORDERED: OLANZapine 10 MG TAB PO SCH (21:00)
[2022-03-02] MEDS: zolPIDEM TARTRATE 5 MG TAB PO SCH (21:53)
[2022-03-02 22:01] VITALS: BP 120/70
[2022-03-03 06:01] VITALS: BP 103/57
[2022-03-03] MEDS: PROPRANOLOL 10 MG TAB PO PRN ×2 (06:18→15:43)
[2022-03-03 07:15] VITALS: BP 125/84
[2022-03-03] MEDS: MULTIVITAMINS/MINERALS THERAP 1 TAB PO SCH (08:17)
[2022-03-03] MEDS: busPIRone 10 MG TAB PO SCH ×2 (08:17→20:03)
[2022-03-03] MEDS: LITHIUM CARBONATE 300 MG CAP PO SCH ×2 (08:17→20:03)
[2022-03-03] MEDS: FOLIC ACID 1MG TAB PO SCH (08:17)
[2022-03-03] MEDS: lamoTRIgine 25MG TAB PO SCH ×2 (08:17→20:02)
[2022-03-03] MEDS: amLODIPine 5 MG TAB PO SCH (08:17)
[2022-03-03] MEDS: hydrOXYzine 50 MG TAB PO SCH (08:18)
[2022-03-03] MEDS: hydrOXYzine 50 MG TAB PO PRN (11:29)
[2022-03-03 15:46] VITALS: BP 127/82
[2022-03-03 18:11] VITALS: BP 127/82
[2022-03-03] MEDS: RAMELTEON 8 MG TAB (ROZEREM) PO SCH (20:02)
[2022-03-03] MEDS: ARIPiprazole 10 MG TAB PO SCH (20:02)
[2022-03-03] MEDS: zolPIDEM TARTRATE 5 MG TAB PO SCH (20:02)
[2022-03-03] MEDS: MAALOX 30 ML SUSP *UDC PO PRN (23:22)
[2022-03-04] MEDS: PROPRANOLOL 10 MG TAB PO PRN ×2 (06:26→15:21)
[2022-03-04 06:34] VITALS: BP 117/67
[2022-03-04] MEDS: busPIRone 10 MG TAB PO SCH ×2 (08:21→20:08)
[2022-03-04] MEDS: LITHIUM CARBONATE 300 MG CAP PO SCH ×2 (08:21→20:09)
[2022-03-04] MEDS: FOLIC ACID 1MG TAB PO SCH (08:21)
[2022-03-04] MEDS: amLODIPine 5 MG TAB PO SCH (08:21)
[2022-03-04] MEDS: MULTIVITAMINS/MINERALS THERAP 1 TAB PO SCH (08:21)
[2022-03-04] MEDS: lamoTRIgine 25MG TAB PO SCH ×2 (08:22→20:08)
[2022-03-04] MEDS: hydrOXYzine 50 MG TAB PO PRN ×2 (12:04→21:40)
[2022-03-04 17:36] VITALS: BP 137/87
[2022-03-04] MEDS: RAMELTEON 8 MG TAB (ROZEREM) PO SCH (20:06)
[2022-03-04] MEDS: ARIPiprazole 10 MG TAB PO SCH (20:09)
[2022-03-04] MEDS: zolPIDEM TARTRATE 5 MG TAB PO SCH (20:09)
[2022-03-04] MEDS: MAALOX 30 ML SUSP *UDC PO PRN (21:40)
[2022-03-05] MEDS: PROPRANOLOL 10 MG TAB PO PRN ×2 (06:23→14:26)
[2022-03-05 06:42] VITALS: BP 126/83
[2022-03-05] MEDS: FOLIC ACID 1MG TAB PO SCH (08:27)
[2022-03-05] MEDS: busPIRone 10 MG TAB PO SCH ×2 (08:27→20:07)
[2022-03-05] MEDS: MULTIVITAMINS/MINERALS THERAP 1 TAB PO SCH (08:27)
[2022-03-05] MEDS: lamoTRIgine 25MG TAB PO SCH ×2 (08:27→20:08)
[2022-03-05] MEDS: LITHIUM CARBONATE 300 MG CAP PO SCH ×2 (08:27→20:07)
[2022-03-05] MEDS: amLODIPine 5 MG TAB PO SCH (08:27)
[2022-03-05] MEDS: hydrOXYzine 50 MG TAB PO PRN ×2 (09:46→18:10)
[2022-03-05] MEDS: MAALOX 30 ML SUSP *UDC PO PRN (14:25)
[2022-03-05 19:16] VITALS: BP 157/95
[2022-03-05] MEDS: ARIPiprazole 10 MG TAB PO SCH (20:08)
[2022-03-05] MEDS: RAMELTEON 8 MG TAB (ROZEREM) PO SCH (20:08)
[2022-03-05] MEDS: zolPIDEM TARTRATE 5 MG TAB PO SCH (20:41)
[2022-03-06] MEDS: PROPRANOLOL 10 MG TAB PO PRN ×3 (00:58→17:25)
[2022-03-06 06:41] VITALS: BP 136/93
[2022-03-06] MEDS: busPIRone 10 MG TAB PO SCH ×2 (08:10→20:06)
[2022-03-06] MEDS: amLODIPine 5 MG TAB PO SCH (08:10)
[2022-03-06] MEDS: lamoTRIgine 25MG TAB PO SCH ×2 (08:11→20:06)
[2022-03-06] MEDS: hydrOXYzine 50 MG TAB PO PRN ×3 (08:11→21:33)
[2022-03-06] MEDS: MULTIVITAMINS/MINERALS THERAP 1 TAB PO SCH (08:11)
[2022-03-06] MEDS: FOLIC ACID 1MG TAB PO SCH (08:11)
[2022-03-06] MEDS: LITHIUM CARBONATE 300 MG CAP PO SCH ×2 (08:11→20:06)
[2022-03-06 17:25] VITALS: BP 158/86
[2022-03-06] MEDS: ARIPiprazole 10 MG TAB PO SCH (20:06)
[2022-03-06] MEDS: zolPIDEM TARTRATE 5 MG TAB PO SCH (20:06)
[2022-03-06] MEDS: RAMELTEON 8 MG TAB (ROZEREM) PO SCH (20:07)
[2022-03-07 06:21] VITALS: BP 122/77
[2022-03-07] MEDS: amLODIPine 5 MG TAB PO SCH (07:37)
[2022-03-07] MEDS: lamoTRIgine 25MG TAB PO SCH (07:38)
[2022-03-07] MEDS: FOLIC ACID 1MG TAB PO SCH (07:38)
[2022-03-07 07:39] VITALS: BP 122/77
[2022-03-07] MEDS: busPIRone 10 MG TAB PO SCH (07:39)
[2022-03-07] MEDS: PROPRANOLOL 10 MG TAB PO PRN (07:39)
[2022-03-07] MEDS: LITHIUM CARBONATE 300 MG CAP PO SCH (07:39)
[2022-03-07] MEDS: MULTIVITAMINS/MINERALS THERAP 1 TAB PO SCH (07:40)
[2022-03-07] MEDS ORDERED: HYDR50TA70 PO (09:42)
[2022-03-07] MEDS ORDERED: VITMTA PO (09:42)
[2022-03-07] MEDS ORDERED: AMBI5TAB PO (09:42)
[2022-03-07] MEDS ORDERED: ABIL10TA9 PO (09:42)
[2022-03-07] MEDS ORDERED: PROP10TA56 PO (09:42)
[2022-03-07] MEDS ORDERED: LAMO100T80 PO (09:42)
[2022-03-07] MEDS ORDERED: RAME8TAB2 PO (09:42)
[2022-03-07] MEDS ORDERED: LITH300C PO (10:41)
[2022-03-07] MEDS ORDERED: BUSP30TA PO (10:42)
[2022-03-07] MEDS ORDERED: AMLO1TAB24 PO (10:44)
== END 2022-03-07 12:06 | disposition home or self-care (01) | DRG 885 ==
LOC: M ED 18:58 → M ED INP 02-27 10:27 → M PSY 02-28 17:03
PROVIDERS: ADMIT Internal Medicine; ATTEND Psychiatry & Neurology Psychiatry
DX: F31.30 Bipolar disorder, current episode depressed, mild or moderate severity, unspecified (principal); R45.851 Suicidal ideations; F12.90 Cannabis use, unspecified, uncomplicated; Z91.14 Patient's other noncompliance with medication regimen; I10 Essential (primary) hypertension; Z79.899 Other long term (current) drug therapy; F41.9 Anxiety disorder, unspecified; G47.00 Insomnia, unspecified

== ENCOUNTER → 2022-06-06 | Outpatient (CLI) | payer MEDICAID, MEDICARE, OTHER ==
[~2022-06-06] MED LIST changes: +ABIL10TA9 PO; +AMBI5TAB PO; +AMLO1TAB24 PO; +BUSP30TA PO; +FOLI1TAB11 PO; +LAMO100T80 PO; +LITH300C PO; +PERI0.126 SSP; +PROP10TA56 PO; +PT COMMENT; +RAME8TAB2 PO; +THIA100TA PO; +TRAZ-252 PO; +VITMTA PO
== END ==
LOC: M LAB 09:00
PROVIDERS: ATTEND Registered Nurse
DX: Z51.81 Encounter for therapeutic drug level monitoring (principal); Z79.899 Other long term (current) drug therapy; F41.9 Anxiety disorder, unspecified; Z13.9 Encounter for screening, unspecified

== ENCOUNTER → 2022-06-19 | Outpatient (CLI) | payer OTHER | LOC: M LAB 09:25 | PROVIDERS: ATTEND Registered Nurse | DX: F41.9 Anxiety disorder, unspecified (principal); Z79.899 Other long term (current) drug therapy ==

== ENCOUNTER → 2022-07-09 | Outpatient (CLI) | payer MEDICAID, OTHER ==
[~2022-07-09] MED LIST changes: +BELS1TAB PO
== END ==
LOC: M LABSMTC 10:41
PROVIDERS: ATTEND Anesthesiology
DX: Z01.812 Encounter for preprocedural laboratory examination (principal); Z11.52 Encounter for screening for COVID-19

== ENCOUNTER 2022-09-01 10:27 | Inpatient (IN) | payer MEDICAID, MEDICARE, OTHER ==
[~2022-09-01] VITALS: Ht 167.6 cm; Wt 67.2 kg
[2022-09-01 12:06] LABS: HEMATOCRIT 45.6 % (42.0-52.0); HEMOGLOBIN 15.4 g/dl (13.5-17.5); MEAN CORPUSCULAR HEMOGLOBIN 31.1 pg (27.0-33.0); MEAN CORPUSCULAR HGB CONC 33.8 g/dl (32.0-36.5); MEAN CORPUSCULAR VOLUME 92.1 fl (80.0-96.0); PLATELET COUNT, AUTOMATED 210 10^3/uL (150-450); RED BLOOD COUNT 4.95 10^6/uL (4.30-6.10); WHITE BLOOD COUNT 6.6 10^3/uL (4.0-10.0)
[2022-09-01 12:31] LABS: AMPHETAMINES LEVEL URINE NEGATIVE (NEGATIVE); BARBITURATES URINE NEGATIVE (NEGATIVE); BENZODIAZEPINES URINE NEGATIVE (NEGATIVE); COCAINE METABOLITE URINE NEGATIVE (NEGATIVE); METHADONE URINE NEGATIVE (NEGATIVE); OPIATES URINE NEGATIVE (NEGATIVE); PHENCYCLIDINE URINE NEGATIVE (NEGATIVE)
[2022-09-01 12:32] LABS: CANNABINOIDS URINE POSITIVE (NEGATIVE)
[2022-09-01 12:33] LABS: ETHYL ALCOHOL (ETHANOL) 0.005 % (0.000-0.010)
[2022-09-01 12:34] LABS: ACETAMINOPHEN LEVEL < 2.0 UG/ML (10.0-20.0)
[2022-09-01 12:35] LABS: ALKALINE PHOSPHATASE 81 U/L (46-116); ALT/SGPT 32 U/L (7.0-40); AST/SGOT 17 U/L (<34); BILIRUBIN,DIRECT 0.1 MG/DL (<0.4); BILIRUBIN,TOTAL 0.3 MG/DL (0.3-1.2); BLOOD UREA NITROGEN 13 MG/DL (9-23); CALCIUM LEVEL 9.2 MG/DL (8.5-10.1); CARBON DIOXIDE LEVEL 32 MMOL/L (20-31); CHLORIDE LEVEL 105 MMOL/L (98-107); CREATININE FOR GFR 1.01 MG/DL (0.70-1.30); GLOMERULAR FILTRATION RATE > 60.0 (>60); GLUCOSE, FASTING 104 MG/DL (60-100); SALICYLATE LEVEL < 3.0 MG/DL (<30); SODIUM LEVEL 142 MMOL/L (136-145); TOTAL PROTEIN 6.6 G/DL (5.7-8.2)
[2022-09-01 12:36] LABS: THYROID STIMULATING HORMONE 1.122 uIU/ML (0.55-4.78)
[2022-09-01 12:39] LABS: LITHIUM LEVEL 0.71 MMOL/L (0.60-1.20)
[2022-09-01] MEDS ORDERED: PROP20TA PO (13:58)
[2022-09-01] MEDS ORDERED: LAMO150T3 PO (13:58)
[2022-09-01] MEDS ORDERED: BELS1TAB2 PO (13:58)
[2022-09-01] MEDS ORDERED: HYDR1TAB33 PO (13:58)
[2022-09-01] MEDS ORDERED: ARIP1TAB44 PO (13:58)
[2022-09-01] MEDS ORDERED: OMEP40CA4 PO (13:59)
[2022-09-01] MEDS ORDERED: HOME MED LIST COMPLETE! XX SCH (14:20)
[2022-09-01] MEDS: hydrOXYzine 50 MG TAB PO SCH (20:57)
[2022-09-01] MEDS: busPIRone 10 MG TAB PO SCH (20:58)
[2022-09-01] MEDS: OMEPRAZOLE 20MG CAP PO SCH (20:58)
[2022-09-01] MEDS: lamoTRIgine 100MG TAB PO SCH (20:58)
[2022-09-01] MEDS: LITHIUM CARBONATE 300 MG CAP PO SCH (20:58)
[2022-09-02] MEDS: UNRESOLVED PATIENT OWN MED ORDER XX SCH (00:01)
[2022-09-02] MEDS ORDERED: PILL CUTTER 1 EACH XX ONE (08:21)
[2022-09-02] MEDS: OMEPRAZOLE 20MG CAP PO SCH ×2 (08:24→21:29)
[2022-09-02] MEDS: busPIRone 10 MG TAB PO SCH ×2 (08:24→21:29)
[2022-09-02] MEDS: lamoTRIgine 100MG TAB PO SCH ×2 (08:24→21:29)
[2022-09-02] MEDS: LITHIUM CARBONATE 300 MG CAP PO SCH ×2 (08:25→21:29)
[2022-09-02] MEDS: hydrOXYzine 50 MG TAB PO SCH ×2 (08:25→21:29)
[2022-09-02] MEDS ORDERED: amLODIPine 5 MG TAB PO SCH (09:00)
[2022-09-02] MEDS ORDERED: ARIPiprazole 10 MG TAB PO SCH (09:00)
[2022-09-02] MEDS ORDERED: PROPRANOLOL 20 MG TAB PO PRN (11:00)
[2022-09-02] MEDS ORDERED: MAALOX 30 ML SUSP *UDC PO PRN (11:00)
[2022-09-02] MEDS ORDERED: MOM 30ML SUSPENSION UDC PO PRN (11:00)
[2022-09-02] MEDS: BELSOMRA 10 MG PO SCH (21:00)
[2022-09-03] MEDS: UNRESOLVED PATIENT OWN MED ORDER XX SCH (00:01)
[2022-09-03 06:24] VITALS: BP 144/98
[2022-09-03] MEDS ORDERED: INFLUENZA QUADRIVALENT PF VACCINE 0.5ML SYRINGE IM.IMMUN ONE (09:00)
[2022-09-03] MEDS ORDERED: NICOTINE 21MG/24HR 1 EA TRANSDERMAL TD SCH (09:00)
[2022-09-03] MEDS: OMEPRAZOLE 20MG CAP PO SCH ×2 (10:06→21:18)
[2022-09-03] MEDS: hydrOXYzine 50 MG TAB PO SCH ×2 (10:06→21:19)
[2022-09-03] MEDS: busPIRone 10 MG TAB PO SCH ×2 (10:06→21:19)
[2022-09-03] MEDS: lamoTRIgine 100MG TAB PO SCH ×2 (10:07→21:18)
[2022-09-03] MEDS: LITHIUM CARBONATE 300 MG CAP PO SCH ×2 (10:07→21:19)
[2022-09-03] MEDS: amLODIPine 5 MG TAB PO SCH (10:08)
[2022-09-03] MEDS: ARIPiprazole 15 MG TAB (AbiLIFY) PO SCH (10:09)
[2022-09-03 15:16] VITALS: BP 137/86
[2022-09-03] MEDS: PROPRANOLOL 20 MG TAB PO PRN (15:41)
[2022-09-03] MEDS: diphenhydrAMINE 25MG CAP PO PRN (18:19)
[2022-09-03] MEDS: BELSOMRA 10 MG PO SCH (21:17)
[2022-09-04 06:48] VITALS: BP 132/95
[2022-09-04 07:42] LABS: CHOLESTEROL RISK RATIO 3.98 (<5); HDL CHOLESTEROL 47.4 MG/DL (>40); LDL CHOLESTEROL 120.6 MG/DL (<100); NON-HDL-C 141.6 MG/DL
[2022-09-04 09:00] VITALS: BP 159/92
[2022-09-04] MEDS: ARIPiprazole 15 MG TAB (AbiLIFY) PO SCH (09:07)
[2022-09-04] MEDS: PILL CUTTER 1 EACH XX PRN (09:07)
[2022-09-04] MEDS: PROPRANOLOL 20 MG TAB PO PRN (09:07)
[2022-09-04] MEDS: OMEPRAZOLE 20MG CAP PO SCH ×2 (09:08→20:32)
[2022-09-04] MEDS: hydrOXYzine 50 MG TAB PO SCH ×2 (09:08→20:32)
[2022-09-04] MEDS: busPIRone 10 MG TAB PO SCH ×2 (09:08→20:32)
[2022-09-04] MEDS: lamoTRIgine 100MG TAB PO SCH ×2 (09:09→20:29)
[2022-09-04] MEDS: LITHIUM CARBONATE 300 MG CAP PO SCH (09:09)
[2022-09-04] MEDS: amLODIPine 5 MG TAB PO SCH (09:09)
[2022-09-04] MEDS: diphenhydrAMINE 25MG CAP PO PRN (16:25)
[2022-09-04 18:13] VITALS: BP 125/98
[2022-09-04] MEDS: BELSOMRA 10 MG PO SCH (20:28)
[2022-09-04] MEDS: LITHIUM CARBONATE 150 MG CAP PO SCH (20:32)
[2022-09-05 06:37] VITALS: BP 158/83
[2022-09-05] MEDS: busPIRone 10 MG TAB PO SCH (08:41)
[2022-09-05] MEDS: hydrOXYzine 50 MG TAB PO SCH (08:41)
[2022-09-05] MEDS: LITHIUM CARBONATE 150 MG CAP PO SCH ×2 (08:41→20:27)
[2022-09-05] MEDS: OMEPRAZOLE 20MG CAP PO SCH ×2 (08:41→20:27)
[2022-09-05] MEDS: ARIPiprazole 10 MG TAB PO SCH (08:41)
[2022-09-05] MEDS: lamoTRIgine 100MG TAB PO SCH ×2 (08:41→20:26)
[2022-09-05] MEDS: PILL CUTTER 1 EACH XX PRN (08:42)
[2022-09-05] MEDS: amLODIPine 5 MG TAB PO SCH (08:44)
[2022-09-05] MEDS: PROPRANOLOL 20 MG TAB PO PRN (10:34)
[2022-09-05] MEDS: diphenhydrAMINE 25MG CAP PO PRN (16:52)
[2022-09-05 17:56] VITALS: BP 164/94
[2022-09-05] MEDS: BELSOMRA 10 MG PO SCH (21:49)
[2022-09-06 06:49] VITALS: BP 130/87
[2022-09-06] MEDS: amLODIPine 5 MG TAB PO SCH (09:51)
[2022-09-06] MEDS: lamoTRIgine 100MG TAB PO SCH ×2 (09:52→20:30)
[2022-09-06] MEDS: PILL CUTTER 1 EACH XX PRN (09:53)
[2022-09-06] MEDS: LITHIUM CARBONATE 150 MG CAP PO SCH ×2 (09:54→20:31)
[2022-09-06] MEDS: ARIPiprazole 10 MG TAB PO SCH (09:54)
[2022-09-06] MEDS: OMEPRAZOLE 20MG CAP PO SCH ×2 (09:55→20:31)
[2022-09-06] MEDS: PROPRANOLOL 20 MG TAB PO PRN (13:40)
[2022-09-06] MEDS: BELSOMRA 10 MG PO SCH (21:46)
[2022-09-06] MEDS: MIRTAZAPINE 7.5MG PER 1/2 TABLET PO SCH (21:47)
[2022-09-07 06:07] VITALS: BP 137/91
[2022-09-07] MEDS: ARIPiprazole 10 MG TAB PO SCH (09:45)
[2022-09-07] MEDS: amLODIPine 5 MG TAB PO SCH (09:45)
[2022-09-07] MEDS: LITHIUM CARBONATE 150 MG CAP PO SCH ×2 (09:45→21:48)
[2022-09-07] MEDS: OMEPRAZOLE 20MG CAP PO SCH ×2 (09:45→21:49)
[2022-09-07] MEDS: PROPRANOLOL 20 MG TAB PO PRN ×2 (09:45→15:57)
[2022-09-07] MEDS: lamoTRIgine 100MG TAB PO SCH ×2 (09:46→21:48)
[2022-09-07 15:47] VITALS: BP 146/91
[2022-09-07] MEDS: BELSOMRA 10 MG PO SCH (21:46)
[2022-09-07] MEDS: MIRTAZAPINE 7.5MG PER 1/2 TABLET PO SCH (21:46)
[2022-09-08 06:28] VITALS: BP 124/61
[2022-09-08 07:42] VITALS: BP 132/87
[2022-09-08] MEDS: OMEPRAZOLE 20MG CAP PO SCH ×2 (08:03→21:16)
[2022-09-08] MEDS: amLODIPine 5 MG TAB PO SCH (08:03)
[2022-09-08] MEDS: lamoTRIgine 100MG TAB PO SCH ×2 (08:04→21:16)
[2022-09-08] MEDS: PILL CUTTER 1 EACH XX PRN ×2 (08:04→21:16)
[2022-09-08] MEDS: LITHIUM CARBONATE 150 MG CAP PO SCH ×2 (08:04→21:15)
[2022-09-08] MEDS: ARIPiprazole 10 MG TAB PO SCH (08:05)
[2022-09-08 18:01] VITALS: BP 159/96
[2022-09-08] MEDS: MIRTAZAPINE 7.5MG PER 1/2 TABLET PO SCH (21:14)
[2022-09-08] MEDS: BELSOMRA 10 MG PO SCH (21:29)
[2022-09-09 06:40] VITALS: BP 116/74
[2022-09-09] MEDS: lamoTRIgine 100MG TAB PO SCH (08:25)
[2022-09-09] MEDS: OMEPRAZOLE 20MG CAP PO SCH (08:25)
[2022-09-09] MEDS: ARIPiprazole 10 MG TAB PO SCH (08:25)
[2022-09-09] MEDS: LITHIUM CARBONATE 150 MG CAP PO SCH (08:25)
[2022-09-09 08:26] VITALS: BP 116/74
[2022-09-09] MEDS: amLODIPine 5 MG TAB PO SCH (08:26)
[2022-09-09] MEDS ORDERED: BENA25CA4 PO (09:42)
[2022-09-09] MEDS ORDERED: LAMO150T3 PO (09:42)
[2022-09-09] MEDS ORDERED: ARIP1TAB43 PO (09:42)
[2022-09-09] MEDS ORDERED: MIRT-10 PO (09:42)
[2022-09-09] MEDS ORDERED: CHLOR50TA PO (09:42)
[2022-09-09] MEDS ORDERED: LITH45TASA PO (09:42)
== END 2022-09-09 12:13 | disposition home or self-care (01) | DRG 885 ==
LOC: M ED 10:27 → M ED INP 09-02 10:58 → M PSY 09-02 14:19
PROVIDERS: ADMIT Student in an Organized Health Care Education/Training Program; ATTEND Student in an Organized Health Care Education/Training Program
DX: F31.30 Bipolar disorder, current episode depressed, mild or moderate severity, unspecified (principal); U07.1 COVID-19; R45.851 Suicidal ideations; F12.90 Cannabis use, unspecified, uncomplicated; F43.10 Post-traumatic stress disorder, unspecified; F79 Unspecified intellectual disabilities; Z91.119 Patient's noncompliance with dietary regimen due to unspecified reason; Z79.899 Other long term (current) drug therapy; I10 Essential (primary) hypertension; K21.9 Gastro-esophageal reflux disease without esophagitis; F41.9 Anxiety disorder, unspecified; R21 Rash and other nonspecific skin eruption

== ENCOUNTER → 2022-12-08 | Outpatient (CLI) | payer OTHER ==
[~2022-12-08] MED LIST changes: +ARIP1TAB43 PO; +ARIP1TAB44 PO; +BELS1TAB2 PO; +CHLOR50TA PO; +IBUP80TA PO; +LAMO150T3 PO; +LITH45TASA PO; +MIRT-10 PO; +OMEP40CA4 PO; +PROP20TA PO
== END ==
LOC: M LAB 11:16
PROVIDERS: ATTEND Registered Nurse
DX: F41.9 Anxiety disorder, unspecified (principal)

== ENCOUNTER → 2023-04-29 | Outpatient (CLI) | payer MEDICARE, OTHER ==
[~2023-04-29] MED LIST changes: -LUNE2TAB23 PO; +LUNE2TAB28 PO
== END ==
LOC: M LAB 11:01
PROVIDERS: ATTEND Registered Nurse
DX: F41.9 Anxiety disorder, unspecified (principal)

== ENCOUNTER 2023-12-15 10:53 | Emergency (ER) | payer OTHER ==
[~2023-12-15] VITALS: Ht 167.6 cm; Wt 73.7 kg
[~2023-12-15 10:53] MED LIST changes: +BUPR-597 PO; -BUPR300T92 PO
[2023-12-15] MEDS ORDERED: HYDR-3713 PO (11:51)
[2023-12-15] MEDS: BACITRACIN OINTMENT 30GM TUBE TOP STA (11:52)
[2023-12-15 11:59] VITALS: BP 143/86; TEMP 99.4; O2SAT 97
== END 2023-12-15 12:00 | disposition home or self-care (01) ==
LOC: M ED 10:53
DX: T22.53 Corrosion of first degree of upper arm (principal); W22.10XA Striking against or struck by unspecified automobile airbag, initial encounter; I10 Essential (primary) hypertension; F17.200 Nicotine dependence, unspecified, uncomplicated; Z79.2 Long term (current) use of antibiotics; Z79.1 Long term (current) use of non-steroidal anti-inflammatories (NSAID); Z79.899 Other long term (current) drug therapy; Y92.9 Unspecified place or not applicable; Y93.89 Activity, other specified; Y99.9 Unspecified external cause status

== ENCOUNTER → 2024-05-20 | Outpatient (CLI) | payer OTHER ==
[~2024-05-20] MED LIST changes: -ARIP1TAB43 PO; -ARIP1TAB44 PO; +ARIP20TA51 PO; +ARIP30TA38 PO; +HYDR-3713 PO; +LITH450T11 PO; -LITH45TASA PO
== END ==
LOC: M RAD 09:21
PROVIDERS: ATTEND Family Medicine Addiction Medicine
DX: M54.50 Low back pain, unspecified (principal)

== ENCOUNTER 2024-07-22 12:26 | Outpatient (RCR) | payer MEDICARE, OTHER | END 2024-07-29 | LOC: M PT 12:26 | PROVIDERS: ATTEND Family Medicine Addiction Medicine | DX: M54.50 Low back pain, unspecified (principal) ==

== ENCOUNTER → 2024-07-26 | Outpatient (CLI) | payer MEDICARE, OTHER | LOC: M RAD 07:17 | PROVIDERS: ATTEND Family Medicine Addiction Medicine | DX: M51.26 Other intervertebral disc displacement, lumbar region (principal) ==

== ENCOUNTER 2024-08-23 12:42 | Outpatient (RCR) | payer MEDICARE | END 2024-08-26 | LOC: M PT 12:42 | PROVIDERS: ATTEND Family Medicine Addiction Medicine | DX: M54.50 Low back pain, unspecified (principal) ==

== ENCOUNTER 2024-09-07 12:00 | Outpatient (RCR) | payer MEDICARE | END 2024-09-26 | LOC: M PT 12:00 | PROVIDERS: ATTEND Family Medicine Addiction Medicine | DX: M54.50 Low back pain, unspecified (principal) ==

== ENCOUNTER 2025-01-18 09:34 | Outpatient (RCR) | payer MEDICARE ==
[~2025-01-18 09:34] MED LIST changes: -AMBI5TAB PO; -BUPR-597 PO; +BUPR-766 PO; -LITH450T11 PO; +LITH450T17 PO; +OLAN20TA74 PO; +ZOLP-532 PO; -ZYPR20TA PO
== END 2025-01-26 ==
LOC: M PT 09:34
PROVIDERS: ATTEND Nurse Practitioner Family
DX: M54.59 Other low back pain (principal)

== ENCOUNTER 2025-02-03 10:00 | Outpatient (RCR) | payer MEDICARE | END 2025-02-26 | LOC: M PT 10:00 | PROVIDERS: ATTEND Nurse Practitioner Family | DX: M54.59 Other low back pain (principal) ==

== ENCOUNTER → 2025-06-14 | Outpatient (REF) | payer MEDICARE ==
[~2025-06-14] MED LIST changes: +AMLO1TAB25; +ESZO1TAB PO; -ESZO1TAB4 PO; -ESZO1TAB6 PO; +ESZO1TAB9 PO; +HYDR-3716; +MIRT1TAB; +PANT40TA29
[2025-06-14 13:13] LABS: CREATININE, URINE 76.1 MG/DL; MALB URINE SIEMENS 3.0 MG/L
[2025-06-14 14:12] LABS: LITHIUM LEVEL 0.50 MMOL/L (1.0-1.20)
[2025-06-14 14:13] LABS: ALT/SGPT 81 U/L (7.0-40); AST/SGOT 37 U/L (<34); CALCIUM LEVEL 9.9 MG/DL (8.5-10.1); CARBON DIOXIDE LEVEL 29 MMOL/L (20-31); CHLORIDE LEVEL 100 MMOL/L (98-107); CHOLESTEROL LEVEL 184 MG/DL (<200); CHOLESTEROL RISK RATIO 4.48 (<5); CREATININE FOR GFR 1.01 MG/DL (0.70-1.30); GLOMERULAR FILTRATION RATE > 90.0 (>56); LDL CHOLESTEROL 97.4 MG/DL (<100); NON-HDL-C 143.0 MG/DL; POTASSIUM SERUM 5.1 MMOL/L (3.5-5.1); SODIUM LEVEL 138 MMOL/L (136-145); TRIGLYCERIDES LEVEL 228 MG/DL (<150)
[2025-06-14 15:04] LABS: ESTIMATED AVERAGE GLUCOSE 117.0 MG/DL (60-110)
== END ==
LOC: M LAB REF 12:01
PROVIDERS: ATTEND Family Medicine Addiction Medicine
DX: I10 Essential (primary) hypertension (principal); Z79.899 Other long term (current) drug therapy